=== PATIENT | female | born 2000 | race Two or more races ===

== ENCOUNTER 2024-02-06 13:43 | Outpatient (REF) | payer OTHER, SELFPAY ==
--- NOTE | ~2024-02-06 | MR_ITS ---
EXAMINATION: MR KNEE WITHOUT CONTRAST, RIGHT CLINICAL INFORMATION: Right knee pain. Old injury. COMPARISON: None available. TECHNIQUE: MRI of the knee without contrast was performed using routine sequences on a high-field scanner. FINDINGS: MENISCI: MEDIAL MENISCUS: Increased T2 signal within the posteromedial corner of the medial meniscus, which could represent normal variation vascularity. A nondisplaced peripheral tibial articular surface tear cannot be entirely excluded in the appropriate clinical setting. LATERAL MENISCUS: Intact. LIGAMENTS: CRUCIATE: Intact. COLLATERAL: Intact. EXTENSOR MECHANISM: Intact. ARTICULAR CARTILAGE/BONE: PATELLOFEMORAL COMPARTMENT: Intact articular cartilage. MEDIAL COMPARTMENT: Intact articular cartilage. LATERAL COMPARTMENT: Intact articular cartilage. JOINT FLUID AND BURSAE: Synovial recess versus ganglion cyst along the lateral joint line measuring up to 2.3 x 0.6 x 1.4 cm. Additional synovial recess versus ganglion cyst along the superolateral aspect of the patellofemoral joint measuring approximately 0.7 x 1.0 x 1.6 cm. No soft tissue mass. MR/MR knee RT wo con IMPRESSION: 1. Increased T2 signal within the posteromedial corner of the medial meniscus, which could represent normal variation. A nondisplaced peripheral tibial articular surface tear cannot be entirely excluded in the appropriate clinical setting. 2. No acute ligament injury. 3. Synovial recess versus ganglion cyst along the lateral joint line and superolateral aspect of the patellofemoral joint.
== END 2024-02-06 13:44 | disposition home or self-care (01) ==
LOC: HO.MRI 13:43
PROVIDERS: PCP Family Medicine Sports Medicine; Visit Provider Family Medicine Sports Medicine
DX: M23.91 Unspecified internal derangement of right knee (principal)
CPT/HCPCS: 73721